=== PATIENT | male | born 1960 | race Caucasian/White ===

== ENCOUNTER 2016-07-11 13:50 | Emergency (ER) | payer OTHER ==
[2016-07-11 13:57] VITALS: BP 131/84
--- NOTE | 2016-07-11 15:07 | UC ---
Shoulder Pain HPI - HPI Summary HPI Summary: 56 yo male with right shoulder pain noted this am had been pitching manure earlier in the week hx tendonitis no injury recalled - History of Current Complaint Chief Complaint: UCUpperExtremity Stated Complaint: RT SHOULDER INJURY Time Seen by Provider: 07/11/16 14:52 Hx Obtained From: Patient Onset/Duration: Sudden Onset, Lasting Hours Timing: Constant Severity Initially: Moderate Severity Currently: Moderate Location Of Pain: Is Diffuse Pain Intensity: 7 Pain Scale Used: 0-10 Numeric Character: Sharp, Aching Aggravating Factor(s): Movement, Lifting, External Rotation Alleviating Factor(s): Rest Related History: Similar Episode/Dx As - tendonitis - Allergies/Home Medications Allergies/Adverse Reactions: Allergies Allergy/AdvReac Type Severity Reaction Status Date / Time No Known Allergies Allergy Verified 07/11/16 13:57 Home Medications: Home Medications Acetaminophen TAB* [Tylenol TAB*] 650 mg PO Q4H PRN 07/11/16 [History Confirmed 07/11/16] PMH/Surg Hx/FS Hx/Imm Hx Previously Healthy: Yes Endocrine History Of: Denies: Diabetes, Thyroid Disease Cardiovascular History Of: Denies: Cardiac Disorders, Hypertension Respiratory History Of: Denies: COPD, Asthma GI/ History Of: Denies: Ulcer - Surgical History Surgical History: Yes Surgery Procedure, Year, and Place: ankle, at age 1 - Family History Known Family History: Positive: Hypertension - Social History Alcohol Use: Daily Alcohol Amount: wine with supper Substance Use Type: None Smoking Status (MU): Never Smoked Tobacco Review of Systems Constitutional: Negative Skin: Negative Eyes: Negative ENT: Negative Respiratory: Negative Cardiovascular: Negative Gastrointestinal: Negative Genitourinary: Negative Motor: Negative Neurovascular: Negative Musculoskeletal: Arthralgia Neurological: Negative Psychological: Negative All Other Systems Reviewed And Are Negative: Yes Physical Exam Triage Information Reviewed: Yes Appearance: Well-Appearing, No Pain Distress, Well-Nourished Vital Signs: Initial Vital Signs Temp 98.7 F 07/11/16 13:54 Pulse 88 07/11/16 13:54 Resp 16 07/11/16 13:54 BP 131/84 07/11/16 13:54 Pulse Ox 99 07/11/16 13:54 Vital Signs Reviewed: Yes Eyes: Positive: Conjunctiva Clear ENT: Negative: Hearing grossly normal, Pharyngeal erythema, Nasal congestion, Trismus, Muffled/hoarse voice Neck: Positive: Supple, Nontender Respiratory: Positive: Lungs clear, Normal breath sounds, No respiratory distress Cardiovascular: Positive: RRR, No Murmur Musculoskeletal: Positive: ROM Limited @ - right shoulder Neurological: Positive: Alert Psychological Exam: Normal Skin Exam: Normal Shoulder Course/Dx - Differential Dx/Diagnosis Provider Diagnoses: right calcific tendonitis Discharge - Discharge Plan Condition: Stable Disposition: HOME Prescriptions: Ibuprofen TAB* [Motrin TAB*] 600 mg PO QID PRN #40 tab PRN Reason: Pain Patient Education Materials: Calcific Tendinitis (ED) Referrals: Monty Maria MD [Medical Doctor] - Additional Instructions: heat massage see orthopedist Thursday if not better Images Front/Back of Body, Lg ([place]): 1 - tender here/unable to abduct/painfule external rotation
--- NOTE | 2016-07-11 15:36 | RAD ---
HISTORY: Right shoulder pain COMPARISONS: April 13, 2015 VIEWS: 3, Frontal internal rotation, external rotation, and outlet views FINDINGS: BONE DENSITY: Normal. BONES: There is no displaced fracture. JOINTS: There is mild osteoarthrosis of the a.c. and glenohumeral joints ALIGNMENT: There is no dislocation. SOFT TISSUES: There is soft tissue calcification along the greater tuberosity OTHER FINDINGS: None. IMPRESSION: 1. MILD OSTEOARTHRITIS. 2. SOFT TISSUES CALCIFICATION SUGGESTIVE OF A CALCIFIC TENDINOPATHY. 3. NO ACUTE OSSEOUS INJURY. IF SYMPTOMS PERSIST, RECOMMEND REPEAT IMAGING
== END 2016-07-11 15:27 | disposition home or self-care (01) ==
LOC: UCCORT 13:50
DX: M75.31 Calcific tendinitis of right shoulder (principal)
CPT/HCPCS: 99212; G0463

== ENCOUNTER 2016-12-14 19:05 | Emergency (ER) | payer OTHER ==
[2016-12-14 19:18] VITALS: BP 121/83
[2016-12-14] MEDS ORDERED: Tetan/Diph/Pertus SYR(Tdap)* 0.5 ML SYR(BOOSTRIX) use SYR IM ONE (19:29)
[2016-12-14] MEDS ORDERED: Lidocaine 2% PF * 5 ML VIAL INJ ONE (20:14)
[2016-12-14] MEDS ORDERED: Lidocaine 2% PF * 5 ML VIAL ONE (20:17)
--- NOTE | 2016-12-14 20:17 | UC ---
Laceration HPI - HPI Summary HPI Summary: deep flap laceration to right dos santos about 2 hours ago, tripped over metal post. - History Of Current Complaint Chief Complaint: UCLaceration Stated Complaint: RT LEG LAC Time Seen by Provider: 12/14/16 20:11 Hx Obtained From: Patient - Allergies/Home Medications Allergies/Adverse Reactions: Allergies Allergy/AdvReac Type Severity Reaction Status Date / Time No Known Allergies Allergy Verified 12/14/16 19:17 Home Medications: Home Medications NK [No Home Medications Reported] 12/14/16 [History Confirmed 12/14/16] PMH/Surg Hx/FS Hx/Imm Hx Previously Healthy: Yes - environmental allergies - Surgical History Surgical History: Yes Surgery Procedure, Year, and Place: ankle, at age 1 - Family History Known Family History: Positive: Hypertension - Social History Occupation: Employed Full-time - drives a [employer] Lives: With Family Alcohol Use: Daily Alcohol Amount: wine with supper Substance Use Type: None Smoking Status (MU): Never Smoked Tobacco - Immunization History Most Recent Tetanus Shot: unsure Review of Systems Constitutional: Negative Skin: Negative Eyes: Negative ENT: Other - uses flonase for allergies with relief. Respiratory: Negative Cardiovascular: Negative Gastrointestinal: Negative Genitourinary: Negative Motor: Negative Neurovascular: Negative Musculoskeletal: Other: - bruised right dos santos with fall. Neurological: Negative Psychological: Negative All Other Systems Reviewed And Are Negative: Yes Physical Exam Triage Information Reviewed: Yes Appearance: Well-Appearing Vital Signs: Initial Vital Signs Temp 98.2 F 12/14/16 19:12 Pulse 90 12/14/16 19:12 Resp 17 12/14/16 19:12 BP 121/83 12/14/16 19:12 Pulse Ox 98 12/14/16 19:12 Vital Signs Reviewed: Yes Respiratory: Positive: Lungs clear, Normal breath sounds Cardiovascular: Positive: RRR, No Murmur Skin Exam: Other - laceration right foreleg, flap laceration 3 x 3 cm margins. Laceration Repair - Laceration Repair 1 Description: Linear - flap laceration Laceration Size After Repair: Length (cm) - 3 x 3 cm Anesthesia Used: 2.0% Lido - 5 cc injected Irrigation With Pressure Irrigation Device: Yes Closure Material: Eusebio - 6 eusebio Laceration Course/Dx - Course/Dx Course Of Treatment: tetanus booster given. laceration stapled. - Differential Dx - Laceration/Wound Differental Diagnoses: Laceration Provider Diagnoses: flap laceration right foreleg. Discharge - Discharge Plan Condition: Stable Disposition: HOME Patient Education Materials: Staple Care (ED), Diphtheria/Pertussis/Tetanus Vaccine (By injection) Additional Instructions: apply a light layer of antibiotic ointment to the laceration after showering. [place] can be removed in 9 to 10 days.
[2016-12-14] MEDS ORDERED: Ibuprofen TAB* 400 MG PO ONE (20:35)
== END 2016-12-14 20:50 | disposition home or self-care (01) ==
LOC: UCCORT 19:05
DX: S81.811A Laceration without foreign body, right lower leg, initial encounter (principal); W01.0XXA Fall on same level from slipping, tripping and stumbling without subsequent striking against object, initial encounter; Y93.9 Activity, unspecified; Y92.9 Unspecified place or not applicable; Z23 Encounter for immunization
CPT/HCPCS: 12002; 90471; 90715; 99212; A9270-GY; G0463

== ENCOUNTER → 2017-11-16 06:37 | Day surgery (SDC) | payer OTHER ==
[~2017-11-16 06:37] MED LIST: Acetaminophen TAB* 325 MG PO PRN; Buffered Lidocaine 0.9% SYRIN* 5 ML/SYR SYRINGE INTRADERM ONE; Bupivacaine 0.5% SDV PF* 30ML VIAL ONE; Dexamethasone IV* 4 MG/ML 1 ML (4 MG) ONE; DiMENhydriNATE IV* 50 MG/ML VIAL IV PUSH PRN; EPINEPHRINE 1 MG/ML 1 ML VIAL ONE; Famotidine IV* 10 MG/ML 2 ML (20 mg) ONE; HYDROcodone/ACETAMIN 5-325 MG* 1 TAB PO PRN; Ketorolac INJ* 30 MG/ML 1 ML VIAL ONE; Levalbuterol 0.63MG/3ML NEB* UNIT OF USE INH PRN; Lidocaine 1% MPF wEPI 200,000* 30 ML SDV ONE; Lidocaine 2% PF * 5 ML VIAL ONE; Midazolam* 1 MG/ML 2 ML VIAL (2 MG) ONE; Nalbuphine* 10 MG/ML 1 ML VIAL IV PRN; Naloxone* 0.4 MG/ML 1 ML VIAL IV PRN; Ondansetron INJ* 2 MG/ML VIAL IV PRN; Ondansetron ODT TAB* 4 MG PO PRN; PROCHLORPERAZINE INJ 5 MG/ML 2 ML VIAL IV PRN; Propofol* 10 MG/ML 20 ML BTL IV PUSH ONE; ceFAZolin 2 GM PREMIX (*) 2 GM/50 ML BAG IVPB ONE; fentaNYL* 50 MCG/ML 2 ML VIAL (100 MCG VIAL) IV PRN; fentaNYL* 50 MCG/ML 2 ML VIAL (100 MCG VIAL) ONE
[2017-11-16 11:53] VITALS: BP 117/78
--- NOTE | 2017-11-16 15:26 | OP ---
DATE OF OPERATION: 11/16/17 - [facility] DATE OF : 58 SURGEON: George Tom MD PLANNING SUPERVISOR: None. ANESTHESIA: General. PRE-OP DIAGNOSES: 1. Left knee chondromalacia. 2. Left knee lateral meniscus tear. POST-OP DIAGNOSES: 1. Left knee chondromalacia. 2. Left knee lateral meniscus tear. OPERATIVE PROCEDURE: 1. Left knee arthroscopy. 2. Partial lateral meniscectomy. 3. Chondroplasty, medial compartment. INDICATIONS: Mr. Carcamo is a 57-year-old male who had injured his left knee this past July. His dog had run into his knee and the knee was sore afterwards, but it just continued to give him troubles as he tries to walk any type of distance, there is a very specific catch that occurs within the knee and it hurts enough, such that it will stop him from preventing until he un- catches it and then can keep going for a while as well. He had undergone an MRI , which had found some very specific changes in his left knee. Specifically, the anterior horn of his lateral meniscus appeared to have a tear as well as having some very specific loss of cartilage within the knee. I discussed with Mr. Carcamo and his that cleaning up the meniscus tear should help with that catch, but if more of his changes were from his arthritis that that would still continue. I very specifically reviewed how the arthroscopy is good to clean up the meniscus tear and its damage, but does not restore cartilage or cushioning to the knee and if this was more of an arthritic issue, he still would be looking more at knee replacement surgery in the near future. Other risks of surgeries such as infection, scar formation, stiffness, DVT, and pulmonary embolism were also discussed with him. He had been declared medically optimized and wished to proceed. ESTIMATED BLOOD LOSS: Negligible. COMPLICATIONS: None. DESCRIPTION OF PROCEDURE: The patient was brought to the OR and an LMA was placed. Left knee was prepped and then draped. Portal sites were preinjected using 10 cc of a mixture of 0.5% Marcaine with 1% lidocaine with epinephrine. Standard lateral portal was made first using an 11 blade. Blunt trocar with the sheath was easily introduced into the knee. Camera was introduced into the sheath. The knee was allowed to insufflate and pulling back, patellofemoral joint was not well visualized. He had a plica, which would drop down obscuring my view just as I would pull back after starting to see the patella. I would easily come back on to the plica after being in the pouch, but was unable to get a nice view of patella. Dropping down into the medial gutter, no loose bodies were seen and medial compartment was entered. Immediate damage was evident. Medial portal was made and probe was introduced. It could be seen where he had a flap of cartilage right on the tibial plateau as well as wear on the femur. Shaver was used to remove the loose pieces of cartilage and do a chondroplasty in the medial compartment. The probe was reintroduced and with the probe, it could be seen there were no underbody tears of the meniscus and meniscus was nicely attached. Nice pictures posteriorly were obtained. Moving into the notch, ACL was intact to probing and the lateral compartment was entered. Extensive synovium was there and this needed to be taken down first. Posterior horn tear was also cleaned up, but there was the anterior horn that I was more concerned about based on the MRI. Coming over, it could be seen how he had a very specific bucket-handle piece of the lateral meniscus tear and a lot of this was cleaned from the shaver coming in from the medial side and then this was fully cleaned with switching the scope medially and using the shaver laterally. Coming up, a better view of patella was obtained and while he had some wear, he did not have any loose pieces of cartilage. Coming back, Erna spring had been finally brought in and a microfracture technique was used on the tibial plateau where the cartilage flap had been and he had exposed subchondral bone. Once second look revealed no additional pathology, all instrumentation was removed. Portal sites were closed using 4-0 nylon sutures and the knee was injected with the remainder of the local, which was a total of 60 cc as well as 12 mg of dexamethasone. Sterile dressing was applied in the OR and a Cryo/Cuff will be applied in Recovery. The patient had the LMA removed in the OR and was stable on transfer to the recovery room. DISPOSITION/DISCHARGE SUMMARY: Mr. Carcamo is a 57-year-old male, who just underwent a left knee arthroscopy. He tolerated the procedure well with no complications. He is currently here in the recovery room. Once he awakes a bit more from his general anesthesia, can tolerate p.o., has his pain well controlled, and can void, he will be discharged home. A script for Pepito will be e-scribed in. He has instructions to keep his dressing clean, dry, and intact for the next 3 days, but after that may take his dressing down, cover his sutures with bandage, may shower, wash and get it wet, but should not soak it. I would like to have him seen in the office in approximately 10 days to have his sutures removed and start him with a simple range of motion program. I would then like to see him about 3 weeks later at one month postop and make sure he is continuing to slowly progress and then no other troubles have come up. [id number]/[facility] #: [id number] LUIS F
== END | disposition home or self-care (01) ==
LOC: OR 06:37
PROVIDERS: ATTEND Orthopaedic Surgery
DX: S83.232A Complex tear of medial meniscus, current injury, left knee, initial encounter (principal); M17.9 Osteoarthritis of knee, unspecified; J45.909 Unspecified asthma, uncomplicated; R07.89 Other chest pain; W54.1XXA Struck by dog, initial encounter; Y93.K1 Activity, walking an animal; Y92.9 Unspecified place or not applicable
CPT/HCPCS: J0690; J1100; J1885; J2001; J2250; J2704; J3010